=== PATIENT | male | born 1950 | race Hispanic/Latino ===

== ENCOUNTER 2025-04-07 08:20 | Inpatient (IN) | payer OTHER ==
[2025-04-03 14:38] VITALS: BMI 23.1
[2025-04-07 09:07] LABS: #Basophils 0.05 10x3/uL (0.0-0.2); #Eosinophils 0.14 10x3/uL (0.0-0.5); #Monocytes 0.85 10x3/uL (0.0-1.1); #Neutrophils 4.91 10x3/uL (1.5-8.4); %Basophils 0.7 % (0.0-2.0); %Eosinophils 1.9 % (0.0-6.0); %Lymphocytes 19.1 % (18.0-47.0); %Monocytes 11.5 % (0.0-10.0); %Neutrophils 66.5 % (40.0-75.0); Hematocrit 40.0 % (38.8-50.0); Hemoglobin 13.2 g/dL (13.5-17.5); Mean Corpuscular Hemoglobin 29.0 pg (27.0-33.0); Mean Corpuscular Volume 87.9 fL (81.2-95.1); Platelet Count 433 10x3/uL (150-450); Red Blood Cell (RBC) Count 4.55 10x6/uL (4.32-5.72); White Blood Cell (WBC) Count 7.38 10x3/uL (3.5-10.5)
[2025-04-07 09:27] LABS: Anion Gap 12 mmol/L (10-20); BUN (Urea Nitrogen) 13 mg/dL (8.4-25.7); Calc. Creatinine Clearance 78 mL/min (70-130); Calcium 9.4 mg/dL (7.8-10.44); Carbon Dioxide 29 mmol/L (23-31); Chloride 97 mmol/L (98-107); Glucose 108 mg/dL (83-110); Potassium 4.2 mmol/L (3.5-5.1); Sodium 134 mmol/L (136-145)
[2025-04-07] MEDS ORDERED: Bupivacaine HCl 0.5%/Epinephrine 1:200,000/PF 30 ml Vial ONE (10:10)
[2025-04-07] MEDS ORDERED: CEFAZOLIN 2 GM VIAL ONE (10:10)
[2025-04-07] MEDS ORDERED: PROPOFOL 20 ML ONE (10:20)
[2025-04-07] MEDS ORDERED: PHENYLEPHRINE-NS 100 MCG/ML 10 ML SYRINGE ONE (11:32)
[2025-04-07] MEDS ORDERED: SUGAMMADEX SODIUM 200 MG/2 ML VIAL ONE (11:32)
[2025-04-07] MEDS ORDERED: Rocuronium Bromide 10 MG/ML (10ML VIAL) ONE (11:32)
== END 2025-04-07 15:10 | disposition home or self-care (01) | DRG 842 ==
LOC: CSHTELE 08:20 → EDSTATUS 10:04
PROVIDERS: ADMIT Surgery; ATTEND Surgery
PROC: B5181ZA Fluoroscopy of Superior Vena Cava using Low Osmolar Contrast, Guidance (ICD-10-PCS; principal; 2025-04-07)
PROC: 02HV33Z Insertion of Infusion Device into Superior Vena Cava, Percutaneous Approach (ICD-10-PCS; principal; 2025-04-07)
PROC: 8E0W4CZ Robotic Assisted Procedure of Trunk Region, Percutaneous Endoscopic Approach (ICD-10-PCS; principal; 2025-04-07)
PROC: 0JH63XZ Insertion of Tunneled Vascular Access Device into Chest Subcutaneous Tissue and Fascia, Percutaneous Approach (ICD-10-PCS; principal; 2025-04-07)
PROC: 0DHA4UZ Insertion of Feeding Device into Jejunum, Percutaneous Endoscopic Approach (ICD-10-PCS; principal; 2025-04-07)
PROC: B548ZZA Ultrasonography of Superior Vena Cava, Guidance (ICD-10-PCS; principal; 2025-04-07)
DX: C83.398 Diffuse large B-cell lymphoma of other extranodal and solid organ sites (principal); I10 Essential (primary) hypertension; E78.5 Hyperlipidemia, unspecified; Z79.899 Other long term (current) drug therapy
CPT/HCPCS: 36415; 71045; 80048; 85025; 93005; 93010; C1788; J1100; J1642; J2250; J2704; J3010; S2900

== ENCOUNTER 2025-04-08 15:57 | Emergency (ER) | payer OTHER | END 2025-04-08 18:13 | disposition home or self-care (01) | LOC: CSHERS 15:57 | DX: Z43.1 Encounter for attention to gastrostomy (principal); I10 Essential (primary) hypertension | CPT/HCPCS: 74176 ==

== ENCOUNTER 2025-04-16 11:27 | Emergency (ER) | payer OTHER ==
[2025-04-16 13:03] LABS: #Basophils Less than 0.03 10x3/uL (0.0-0.2); #Eosinophils 0.03 10x3/uL (0.0-0.5); #Monocytes 0.14 10x3/uL (0.0-1.1); #Neutrophils 5.26 10x3/uL (1.5-8.4); %Basophils 0.0 % (0.0-2.0); %Eosinophils 0.5 % (0.0-6.0); %Lymphocytes 4.7 % (18.0-47.0); %Monocytes 2.4 % (0.0-10.0); %Neutrophils 92.1 % (40.0-75.0); Hematocrit 30.0 % (38.8-50.0); Hemoglobin 9.8 g/dL (13.5-17.5); Mean Corpuscular Hemoglobin 29.2 pg (27.0-33.0); Mean Corpuscular Volume 89.3 fL (81.2-95.1); Platelet Count 320 10x3/uL (150-450); Red Blood Cell (RBC) Count 3.36 10x6/uL (4.32-5.72); White Blood Cell (WBC) Count 5.72 10x3/uL (3.5-10.5)
[2025-04-16 13:20] LABS: ALT (SGPT) 8 U/L (Less than 45); AST (SGOT) 18 U/L (11-34); Albumin 1.8 g/dL (3.1-4.5); Alkaline Phosphatase 71 U/L (40-110); Anion Gap 12 mmol/L (10-20); BUN (Urea Nitrogen) 17 mg/dL (8.4-25.7); Bilirubin, Total 0.4 mg/dL (0.3-1.2); Calc. Creatinine Clearance 0 mL/min (70-130); Calcium 8.2 mg/dL (7.8-10.44); Carbon Dioxide 27 mmol/L (23-31); Chloride 102 mmol/L (98-107); Globulin 3.6 g/dL (2.4-3.5); Glucose 106 mg/dL (83-110); Lipase 12 U/L (8-78); Potassium 4.3 mmol/L (3.5-5.1); Sodium 137 mmol/L (136-145)
== END 2025-04-16 14:00 | disposition home or self-care (01) ==
LOC: CSHERS 11:27
DX: T85.638A Leakage of other specified internal prosthetic devices, implants and grafts, initial encounter (principal); I10 Essential (primary) hypertension; Z75.8 Other problems related to medical facilities and other health care
CPT/HCPCS: 80053; 83605; 83690; 85025; 99283; J3010